=== PATIENT | male | born 1955 | race Caucasian/White ===

== ENCOUNTER 2024-03-11 17:51 | Inpatient (IN) | payer MEDICARE ==
[2024-03-11] MEDS ORDERED: Aspirin Chewable 81 MG TAB ONE (18:04)
[2024-03-11 19:13] LABS: #Basophils Less than 0.03 10x3/uL (0.0-0.2); %Basophils 0.2 % (0.0-1.0); %Eosinophils 1.3 % (0.0-10.0); %Lymphocytes 19.6 % (21.0-51.0); %Neutrophils 70.5 % (42.0-75.0); Hematocrit 41.2 % (42.0-52.0); Hemoglobin 14.1 g/dL (14.0-18.0); Mean Corpuscular HGB CONC 34.2 g/dL (32.0-36.0); Mean Corpuscular Hemoglobin 32.6 pg (27.0-31.0); Mean Corpuscular Volume 95.4 fL (78.0-98.0); Mean Platelet Volume 11.4 fL (7.4-10.4); Platelet Count 192 10x3/uL (130-400); RBC Distribution Width 11.9 % (11.5-14.5); Red Blood Cell (RBC) Count 4.32 mill/uL (4.70-6.10)
[2024-03-11 19:29] LABS: ALT (SGPT) 88 U/L (8-55); AST (SGOT) 88 U/L (5-34); Albumin 3.9 g/dL (3.4-4.8); Alkaline Phosphatase 110 U/L (40-110); Anion Gap 12 mmol/L (10-20); BUN (Urea Nitrogen) 13 mg/dL (8.4-25.7); Bilirubin, Total 0.4 mg/dL (0.2-1.2); Calc. Creatinine Clearance 0 mL/min (70-130); Carbon Dioxide 26 mmol/L (23-31); Chloride 105 mmol/L (98-107); Estimated GFR 92; Globulin 2.8 g/dL (2.4-3.5); Glucose 92 mg/dL (80-115); Lipase 34 U/L (8-78); Potassium 3.8 mmol/L (3.5-5.1); Protein, Total 6.7 g/dL (5.8-8.1); Sodium 139 mmol/L (136-145)
[2024-03-11] MEDS ORDERED: Nitroglycerin 0.4 MG TAB (25 Tab Bottle) SL PRN (20:13)
[2024-03-11] MEDS ORDERED: traMADol HCl 50 MG TAB PO PRN (20:18)
[2024-03-11] MEDS ORDERED: Enoxaparin 80 MG (0.8 mL) SYRINGE ONE (21:03)
[2024-03-11 23:05] VITALS: BMI 25.9
[2024-03-11] MEDS: Atorvastatin Calcium 20 MG TAB PO SCH (23:33)
[2024-03-12 00:02] LABS: Troponin I 7.348 ng/mL (< 0.028)
[2024-03-12] MEDS: Atorvastatin Calcium 20 MG TAB PO SCH ×2 (00:32→20:19)
[2024-03-12 03:29] LABS: #Basophils Less than 0.03 10x3/uL (0.0-0.2); %Basophils 0.2 % (0.0-1.0); %Lymphocytes 20.3 % (21.0-51.0); %Monocytes 9.5 % (0.0-10.0); %Neutrophils 67.6 % (42.0-75.0); Hematocrit 38.5 % (42.0-52.0); Hemoglobin 12.8 g/dL (14.0-18.0); Mean Corpuscular HGB CONC 33.2 g/dL (32.0-36.0); Mean Corpuscular Volume 96.3 fL (78.0-98.0); Mean Platelet Volume 11.3 fL (7.4-10.4); Platelet Count 166 10x3/uL (130-400)
[2024-03-12 04:17] LABS: ALT (SGPT) 75 U/L (8-55); AST (SGOT) 95 U/L (5-34); Albumin 3.3 g/dL (3.4-4.8); Alkaline Phosphatase 96 U/L (40-110); Anion Gap 11 mmol/L (10-20); BUN (Urea Nitrogen) 14 mg/dL (8.4-25.7); Bilirubin, Total 0.6 mg/dL (0.2-1.2); Calc. Creatinine Clearance 101 mL/min (70-130); Calcium 8.5 mg/dL (7.8-10.44); Carbon Dioxide 28 mmol/L (23-31); Cardiac Risk 3.1 (Less than 4.5); Chloride 104 mmol/L (98-107); Cholesterol 111 mg/dl (< 200 Desired); Estimated GFR 94; Globulin 2.4 g/dL (2.4-3.5); Glucose 118 mg/dL (80-115); HDL Cholesterol 36 mg/dL (>60 Neg Risk); LDL Cholesterol, Calculated 54 mg/dL; Potassium 3.6 mmol/L (3.5-5.1); Protein, Total 5.7 g/dL (5.8-8.1); Sodium 139 mmol/L (136-145); Triglycerides 107 mg/dL (Less than 150)
[2024-03-12] MEDS: Losartan 25 MG TAB PO SCH (09:11)
[2024-03-12] MEDS: Aspirin 81 mg Enteric Coated Tablet PO SCH (09:11)
[2024-03-12] MEDS: Pantoprazole 40 MG VIAL IVP SCH (09:12)
[2024-03-12] MEDS: Enoxaparin 100 MG (1 mL) SYRINGE SC SCH (09:12)
[2024-03-12] MEDS: Sodium Chloride 0.9% 1,000 ML IV SCH (20:18)
[2024-03-13 04:17] LABS: Anion Gap 12 mmol/L (10-20); BUN (Urea Nitrogen) 16 mg/dL (8.4-25.7); Calc. Creatinine Clearance 100 mL/min (70-130); Calcium 8.4 mg/dL (7.8-10.44); Carbon Dioxide 24 mmol/L (23-31); Chloride 104 mmol/L (98-107); Estimated GFR 93; Glucose 103 mg/dL (80-115); Potassium 3.7 mmol/L (3.5-5.1); Sodium 136 mmol/L (136-145)
[2024-03-13 04:20] LABS: Hemoglobin A1c 5.1 % (4.0-6.0)
[2024-03-13] MEDS ORDERED: Communication Order-Pharmacy FS SCH (06:00)
[2024-03-13] MEDS ORDERED: Verapamil 5 MG/2 ML VIAL ONE (07:40)
[2024-03-13] MEDS ORDERED: Heparin 10,000 UNITS/ 10 ML VIAL ONE (07:41)
[2024-03-13] MEDS ORDERED: Nitroglycerin 50 MG/250 ML BOT 250 ML ONE (07:41)
[2024-03-13] MEDS ORDERED: Midazolam HCl 2 mg/2 ml Vial ONE (08:04)
[2024-03-13] MEDS ORDERED: fentaNYL 50 mcg/mL 1 mL Vial ONE ×2 (08:04→09:08)
[2024-03-13] MEDS ORDERED: Iopamidol 370 76% 100 ML VIAL ONE (08:19)
[2024-03-13] MEDS ORDERED: Atropine Sulfate 1 mg/10 ml Syringe ONE (09:03)
[2024-03-13] MEDS ORDERED: PHENYLEPHRINE-NS 100 MCG/ML 10 ML SYRINGE ONE (09:03)
[2024-03-13] MEDS ORDERED: TICAGRELOR 90 MG TABLET ONE (09:05)
[2024-03-13] MEDS ORDERED: Morphine 2 MG/ML VIAL SLOW IVP PRN (09:23)
[2024-03-13] MEDS: TICAGRELOR 90 MG TABLET PO SCH (21:26)
[2024-03-13] MEDS: Atorvastatin Calcium 40 MG TAB PO SCH (21:26)
[2024-03-14 03:55] LABS: #Basophils Less than 0.03 10x3/uL (0.0-0.2); %Basophils 0.1 % (0.0-1.0); %Eosinophils 1.1 % (0.0-10.0); %Lymphocytes 21.2 % (21.0-51.0); %Neutrophils 66.4 % (42.0-75.0); Hemoglobin 12.7 g/dL (14.0-18.0); Mean Corpuscular HGB CONC 33.4 g/dL (32.0-36.0); Mean Corpuscular Hemoglobin 32.2 pg (27.0-31.0); Mean Corpuscular Volume 96.4 fL (78.0-98.0); Mean Platelet Volume 11.1 fL (7.4-10.4); Platelet Count 168 10x3/uL (130-400); RBC Distribution Width 12.1 % (11.5-14.5); Red Blood Cell (RBC) Count 3.94 mill/uL (4.70-6.10)
[2024-03-14 04:07] LABS: ALT (SGPT) 45 U/L (8-55); AST (SGOT) 40 U/L (5-34); Albumin 3.2 g/dL (3.4-4.8); Alkaline Phosphatase 87 U/L (40-110); Anion Gap 11 mmol/L (10-20); BUN (Urea Nitrogen) 15 mg/dL (8.4-25.7); Bilirubin, Total 0.8 mg/dL (0.2-1.2); Calc. Creatinine Clearance 97 mL/min (70-130); Calcium 8.6 mg/dL (7.8-10.44); Carbon Dioxide 24 mmol/L (23-31); Chloride 105 mmol/L (98-107); Estimated GFR 93; Globulin 2.7 g/dL (2.4-3.5); Glucose 100 mg/dL (80-115); Potassium 3.4 mmol/L (3.5-5.1); Protein, Total 5.9 g/dL (5.8-8.1); Sodium 137 mmol/L (136-145)
[2024-03-14] MEDS ORDERED: Rosuvastatin 10 MG TAB PO SCH (09:00)
[2024-03-14] MEDS: Aspirin Chewable 81 MG TAB PO SCH (09:32)
[2024-03-14] MEDS: Potassium Chloride 20 MEQ TAB PO SCH (09:32)
[2024-03-14] MEDS: Pantoprazole DR 40 MG TAB PO SCH (09:33)
[2024-03-14 16:02] VITALS: BP 131/78; TEMP 98
== END 2024-03-14 16:42 | disposition home or self-care (01) | DRG 322 ==
LOC: ERS 17:51 → PCU 20:15 → OBSVTOIN 03-12 17:39
PROVIDERS: ADMIT Internal Medicine; ATTEND Internal Medicine
PROC: 027034Z Dilation of Coronary Artery, One Artery with Drug-eluting Intraluminal Device, Percutaneous Approach (ICD-10-PCS; principal; 2024-03-13)
PROC: 4A023N7 Measurement of Cardiac Sampling and Pressure, Left Heart, Percutaneous Approach (ICD-10-PCS; 2024-03-13)
PROC: B2111ZZ Fluoroscopy of Multiple Coronary Arteries using Low Osmolar Contrast (ICD-10-PCS; 2024-03-13)
DX: I21.4 Non-ST elevation (NSTEMI) myocardial infarction (principal); I10 Essential (primary) hypertension; E78.5 Hyperlipidemia, unspecified; R74.01 Elevation of levels of liver transaminase levels; G89.29 Other chronic pain; Z79.899 Other long term (current) drug therapy
CPT/HCPCS: 36415; 71045; 76705; 80048; 80053; 80061; 82550; 83036; 83690; 84484; 85025; 85347; 92928; 93005; 93010; 93306; 93454; 93798; 94760; 96372; 96374; 99152; 99153; C1769; C1874; C1887; C1894; C9600; G0378; J0461; J1644; J1650; J2250; J2470; J3010; Q9967

== ENCOUNTER 2024-03-16 05:14 | Emergency (ER) | payer MEDICARE ==
[~2024-03-16 05:14] MED LIST: HYDROcodone/Acetaminophen 5/325 mg Tablet ONE; Methocarbamol 500 MG TAB ONE
== END 2024-03-16 05:34 | disposition home or self-care (01) ==
LOC: ERS 05:14
DX: R29.898 Other symptoms and signs involving the musculoskeletal system (principal)
CPT/HCPCS: 70498